=== PATIENT | male | born 1965 | race Asian ===

== ENCOUNTER 2017-10-17 | Inpatient (IN) | payer BC ==
[~2017-10-17] VITALS: Ht 175.3 cm; Wt 77.1 kg
[2017-10-17] VITALS (7 sets, daily range): BP systolic 105–132; BP diastolic 58–80
[2017-10-17] MEDS ORDERED: Albuterol/Ipratropium 3ml neb HHN ONE (00:15)
[2017-10-17] MEDS ORDERED: Solu-MEDROL 125mg Inj IVP ONE (00:15)
[2017-10-17 01:29] LABS: EOSINOPHILS % (AUTO) 6.5 % (0.0-3.0); HEMATOCRIT 46.6 % (42.0-52.0); HEMOGLOBIN 15.7 G/DL (14.2-18.0); MEAN CORPUSCULAR VOLUME 87 FL (80-99); MONOCYTES % (AUTO) 4.5 % (1.0-10.0); PLATELET COUNT 234 K/UL (150-450); RED BLOOD COUNT 5.38 M/UL (4.70-6.10); RED CELL DISTRIBUTION WIDTH 11.9 % (11.6-14.8); WHITE BLOOD COUNT 8.7 K/UL (4.8-10.8)
[2017-10-17 01:35] LABS: ANION GAP 8 mmol/L (5-15); BLOOD UREA NITROGEN 20 mg/dL (7-18); CALCIUM 8.8 MG/DL (8.5-10.1); CARBON DIOXIDE 27 MMOL/L (21-32); CHLORIDE 104 MMOL/L (98-107); CREATININE 0.6 MG/DL (0.55-1.30); POTASSIUM 3.2 MMOL/L (3.5-5.1); SODIUM 139 MMOL/L (136-145)
[2017-10-17 01:51] LABS: ALANINE AMINOTRANSFERASE 86 U/L (12-78); ALBUMIN 3.7 G/DL (3.4-5.0); ALBUMIN/GLOBULIN RATIO 0.9 (1.0-2.7); ALKALINE PHOSPHATASE 99 U/L (46-116); ASPARTATE AMINO TRANSFERASE 38 U/L (15-37); BILIRUBIN,TOTAL 0.4 MG/DL (0.2-1.0); CKMB 11.1 NG/ML (0.0-3.6); CREATINE KINASE 617 U/L (26-308)
[2017-10-17] MEDS ORDERED: Albuterol ud Inhalation ONE (02:01)
--- NOTE | 2017-10-17 02:02 | Emergency Room Report ---
History of Present Illness General Chief Complaint: Dyspnea/Respdistress Source: Patient, Family Member Present Illness HPI Is a 52-year-old male with a history of asthma and ALS. He presents with chief complaint of wheezing and shortness of breath. Had to call 911. EMS said he was hypoxic on room air. He was wheezing so they gave him breathing treatment. He thinks that cold weather is causing his symptoms. No other complaint. Recent steroid. Allergies: Coded Allergies: No Known Allergies (Unverified , 10/17/17) Patient History Past Medical History: see triage record, old chart reviewed, asthma Past Surgical History: other Pertinent Family History: none Social History: Denies: smoking Immunizations: other Reviewed Nursing Documentation: PMH: Agreed, PSxH: Agreed Nursing Documentation-PMH Hx Asthma: Yes Review of Systems Eye: Denies: eye pain, blurred vision ENT: Denies: ear pain, nose congestion, throat swelling Respiratory: Reports: cough, shortness of breath, wheezing Cardiovascular: Denies: chest pain, palpitations Gastrointestinal: Denies: abdominal pain, diarrhea, nausea, vomiting Musculoskeletal: Denies: back pain, joint pain Skin: Denies: rash Neurological: Denies: headache, numbness Endocrine: Denies: increased thirst, increased urine Hematologic/Lymphatic: Denies: easy bruising All Other Systems: negative except mentioned in HPI Physical Exam Vital Signs Date Time Temp Pulse Resp B/P (MAP) Pulse Ox O2 Delivery O2 Flow Rate FiO2 10/16/17 23:58 98.8 115 18 150/100 98 Simple Mask 10.0 98.8 10/17/17 00:25 21 vitals with tachycardia Sp02 EP Interpretation: reviewed, normal General Appearance: mild distress Head: normocephalic, atraumatic Eyes: bilateral eye PERRL, bilateral eye EOMI ENT: hearing grossly normal, normal pharynx Neck: full range of motion, supple, no meningismus Respiratory: chest non-tender, decreased breath sounds, accessory muscle use, wheezing Cardiovascular #1: regular rate, rhythm, no murmur Gastrointestinal: normal bowel sounds, non tender, no mass, no organomegaly, no bruit, non-distended Musculoskeletal: back normal Neurologic: alert, oriented x3 Psychiatric: mood/affect normal Skin: warm/dry Medical Decision Making Diagnostic Impression: Primary Impression: Asthma exacerbation Qualified Codes: J45.21 - Mild intermittent asthma with (acute) exacerbation Additional Impressions: Abnormal EKG Respiratory distress ER Course Patient with asthma exacerbation. Wheezing resolved after treatment. Starks better now. X-rays unremarkable. Labs unremarkable. Starks like he can go home. He has increased risk for deterioration patient is ALS history. patient has no cardiac history. His EKG show ST depression laterally. No comparison. Troponin negative. Will admit for further workup because of this. Lab Results Impression labs unremarkable EKG Diagnostic Results Rate: normal Rhythm: NSR ST Segments: other - ST depression laterally ASA given to the pt in ED: Yes Rhythm Strip Diag. Results Rhythm Strip Time: 02:09 EP Interpretation: yes Rate: 94 Rhythm: NSR, no PVC's, no ectopy Chest X-Ray Diagnostic Results Chest X-Ray Diagnostic Results : Chest X-Ray Ordered: Yes # of Views/Limited/Complete: 1 View Indication: Shortness of Breath EP Interpretation: Yes Interpretation: no consolidation, no effusion, no pneumothorax, no acute cardiopulmonary disease Impression: No acute disease Electronically Signed by: Leo Muñoz MD Last Vital Signs Date Time Temp Pulse Resp B/P (MAP) Pulse Ox O2 Delivery O2 Flow Rate FiO2 10/17/17 01:22 98.8 103 18 113/70 94 Room Air 98.8 10/17/17 00:38 21 10/17/17 00:00 10.0 Status: improved Disposition: ADMITTED INPATIENT Condition: LEO White M.D. Oct 17, 2017 02:01
[2017-10-17] MEDS ORDERED: BACLOFEN10 MG ORAL (02:11)
[2017-10-17] MEDS ORDERED: HYDROCODON-ACE1 EA13 ORAL (02:11)
[2017-10-17] MEDS ORDERED: SERTRALINE HCL50 MG ORAL (02:11)
[2017-10-17] MEDS ORDERED: RILUZOLE50 M1 ORAL (02:11)
[2017-10-17] MEDS ORDERED: Albuterol ud Inhalation HHN ONE (02:15)
[2017-10-17] MEDS ORDERED: Aspirin Baby 81mg ORAL ONE (02:15)
--- NOTE | 2017-10-17 09:13 | Consultation ---
History of Present Illness General Date patient seen: Oct 17, 2017 Time patient seen: 08:30 Chief Complaint: Dyspnea/Respdistress Referring physician: dr Santana Reason for Consultation: asthma exacerbation, resp distress Present Illness HPI 52-year-old male with a PMH of asthma , ALS, depression presented with c/c of shortness of breath and wheezing Woke up and had difficulties with breathing Called paramedics According to paramedics was hypoxemic and wheezing, received HHN with bronchodilators Had recent cold denies fevers, chills no cough, no congestion, no hemoptysis no smoking Hx of asthma only using Ventolin (but not as rescue inhaler), but continuously , almost q 4 hrs) denies chest pain, palpitations workup in ED revealed negative troponin, pro BNP WNL ECG abnormal with ST depression, no prior cardiac history under care for ALS at [facility], has PAC admitted for further management Allergies: Coded Allergies: No Known Allergies (Unverified , 10/17/17) Medication History Scheduled Baclofen* (Baclofen*), 20 MG ORAL THREE TIMES A DAY, (Reported) Hydrocodone Bit/Acetaminophen 10-325* (Hydrocodon-Acetaminophn 10-325*), 1 TAB ORAL Q4H, (Reported) Riluzole* (Riluzole*), 50 MG ORAL EVERY 12 HOURS, (Reported) Sertraline Hcl* (Zoloft*), 50 MG ORAL BID, (Reported) Patient History History Provided By: Patient Healthcare decision maker Resuscitation status Full Code Advanced Directive on File No Review of Systems Constitutional: Reports: weakness Eye: Reports: no symptoms ENT: Reports: no symptoms Respiratory: Reports: see HPI Cardiovascular: Reports: no symptoms Gastrointestinal: Reports: no symptoms Musculoskeletal: Reports: muscle stiffness, other - not ambualtory Psychiatric: Reports: depressed feelings Neurological: Reports: other - ALS Endocrine: Reports: no symptoms Physical Exam General Appearance: WD/WN, no apparent distress - bedridden, awake, alert, responsive Lines, tubes and drains: central line - Cporta-cath intact HEENT: normocephalic, atraumatic, anicteric, mucous membranes moist, PERRL Respiratory/Chest: decreased breath sounds Cardiovascular/Chest: normal rate, regular rhythm - SR on tele, no JVD Abdomen: normal bowel sounds, non tender, soft Extremities: non-tender, no calf tenderness, normal capillary refill, other - wrist splints Skin Exam: warm/dry Neurologic: abnormal gait - bedridden , alert Musculoskeletal: atrophy - BLE Last 24 Hour Vital Signs Date Time Temp Pulse Resp B/P (MAP) Pulse Ox O2 Delivery O2 Flow Rate FiO2 10/17/17 04:00 98.1 90 21 124/79 93 98.1 10/17/17 03:36 98.8 101 18 105/58 94 Room Air 10.0 21 98.8 10/17/17 03:25 98.8 101 18 105/58 94 Room Air 10.0 21 98.8 10/17/17 02:18 96 18 100 Room Air 21 10/17/17 02:10 94 16 100 Room Air 21 10/17/17 01:22 98.8 103 18 113/70 94 Room Air 98.8 10/17/17 00:38 106 18 100 Room Air 21 10/17/17 00:25 105 19 99 Room Air 21 10/17/17 00:25 105 18 Room Air 21 10/17/17 00:00 115 18 Simple Mask 10.0 10/16/17 23:58 98.8 115 18 150/100 98 Simple Mask 10.0 98.8 Intake and Output 10/16/17 10/17/17 19:00 07:00 Intake Total 1150 ml Output Total 400 ml Balance 750 ml Intake Oral 150 ml IV Total 1000 ml Output Urine Total 400 ml Laboratory Tests Test 10/17/17 00:38 White Blood Count 8.7 K/UL (4.8-10.8) Red Blood Count 5.38 M/UL (4.70-6.10) Hemoglobin 15.7 G/DL (14.2-18.0) Hematocrit 46.6 % (42.0-52.0) Mean Corpuscular Volume 87 FL (80-99) Mean Corpuscular Hemoglobin 29.2 PG (27.0-31.0) Mean Corpuscular Hemoglobin Concent 33.8 G/DL (32.0-36.0) Red Cell Distribution Width 11.9 % (11.6-14.8) Platelet Count 234 K/UL (150-450) Mean Platelet Volume 6.8 FL (6.5-10.1) Neutrophils (%) (Auto) 55.0 % (45.0-75.0) Lymphocytes (%) (Auto) 33.0 % (20.0-45.0) Monocytes (%) (Auto) 4.5 % (1.0-10.0) Eosinophils (%) (Auto) 6.5 % (0.0-3.0) H Basophils (%) (Auto) 1.0 % (0.0-2.0) Prothrombin Time 10.0 SEC (9.30-11.50) Prothromb Time International Ratio 1.0 (0.9-1.1) Activated Partial Thromboplast Time 27 SEC (23-33) Sodium Level 139 MMOL/L (136-145) Potassium Level 3.2 MMOL/L (3.5-5.1) L Chloride Level 104 MMOL/L (98-107) Carbon Dioxide Level 27 MMOL/L (21-32) Anion Gap 8 mmol/L (5-15) Blood Urea Nitrogen 20 mg/dL (7-18) H Creatinine 0.6 MG/DL (0.55-1.30) Estimat Glomerular Filtration Rate > 60 mL/min (>60) Glucose Level 142 MG/DL (74-106) H Calcium Level 8.8 MG/DL (8.5-10.1) Total Bilirubin 0.4 MG/DL (0.2-1.0) Aspartate Amino Transf (AST/SGOT) 38 U/L (15-37) H Alanine Aminotransferase (ALT/SGPT) 86 U/L (12-78) H Alkaline Phosphatase 99 U/L (46-116) Total Creatine Kinase 617 U/L (26-308) H Creatine Kinase MB 11.1 NG/ML (0.0-3.6) H Creatine Kinase MB Relative Index 1.7 Troponin I 0.000 ng/mL (0.000-0.056) Pro-B-Type Natriuretic Peptide < 5 pg/mL (0-125) Total Protein 7.7 G/DL (6.4-8.2) Albumin 3.7 G/DL (3.4-5.0) Globulin 4.0 g/dL Albumin/Globulin Ratio 0.9 (1.0-2.7) L Microbiology Date/Time Source Procedure Growth Status 10/17/17 00:43 Nasal Nares Influenza Types A,B Antigen (BEATRIZ) - Final Complete Height (Feet): 5 Height (Inches): 9.00 Weight (Pounds): 170 Assessment/Plan Assessment/Plan ASSESSMENT acute hypoxemic respiratory failure-resolved ( likely due to bronchospasm ) asthma exacerbation abnormal ECG with ST depression ALS depression PLAN OF CARE tele troponin negative repeat troponin and ECG in am ECHO cardio eval Venous Duplex BLE, D dimer O2 HHN prn IV steroids and taper fast fup with CXR in am neuro eval PT/OT DVT, GI prophayxlis pain management home meds resumed, including a/depressant supportive care PFT as outpatient, outpt fup with community health program coordinator O2 sat on RA 94-95% case discussed and evaluated by supervising physician Roel (Charly),Tasha GAGNON Oct 17, 2017 09:13
[2017-10-17] MEDS ORDERED: Mylanta II UD 30ml ORAL PRN (09:15)
[2017-10-17] MEDS ORDERED: Albuterol/Ipratropium 3ml neb HHN PRN (09:15)
--- NOTE | 2017-10-17 09:22 | Diagnostic Imaging Report ---
Indication: Shortness of breath Technique: One view of the chest Comparison: none Findings: The lungs and pleural spaces are clear. There is a right chest port catheter. The heart size is normal. The aorta is elongated tortuous and calcified. The upper mediastinum is unremarkable Impression: No acute process
--- NOTE | 2017-10-17 11:12 | Neurology Progress Note ---
Objective Physical Exam Last Vital Signs Date Time Temp Pulse Resp B/P (MAP) Pulse Ox O2 Delivery O2 Flow Rate FiO2 10/17/17 04:00 98.1 90 21 124/79 93 98.1 10/17/17 03:36 Room Air 10.0 21 Laboratory Tests Test 10/17/17 00:38 White Blood Count 8.7 K/UL (4.8-10.8) Red Blood Count 5.38 M/UL (4.70-6.10) Hemoglobin 15.7 G/DL (14.2-18.0) Hematocrit 46.6 % (42.0-52.0) Mean Corpuscular Volume 87 FL (80-99) Mean Corpuscular Hemoglobin 29.2 PG (27.0-31.0) Mean Corpuscular Hemoglobin Concent 33.8 G/DL (32.0-36.0) Red Cell Distribution Width 11.9 % (11.6-14.8) Platelet Count 234 K/UL (150-450) Mean Platelet Volume 6.8 FL (6.5-10.1) Neutrophils (%) (Auto) 55.0 % (45.0-75.0) Lymphocytes (%) (Auto) 33.0 % (20.0-45.0) Monocytes (%) (Auto) 4.5 % (1.0-10.0) Eosinophils (%) (Auto) 6.5 % (0.0-3.0) H Basophils (%) (Auto) 1.0 % (0.0-2.0) Prothrombin Time 10.0 SEC (9.30-11.50) Prothromb Time International Ratio 1.0 (0.9-1.1) Activated Partial Thromboplast Time 27 SEC (23-33) D-Dimer Pending Sodium Level 139 MMOL/L (136-145) Potassium Level 3.2 MMOL/L (3.5-5.1) L Chloride Level 104 MMOL/L (98-107) Carbon Dioxide Level 27 MMOL/L (21-32) Anion Gap 8 mmol/L (5-15) Blood Urea Nitrogen 20 mg/dL (7-18) H Creatinine 0.6 MG/DL (0.55-1.30) Estimat Glomerular Filtration Rate > 60 mL/min (>60) Glucose Level 142 MG/DL (74-106) H Calcium Level 8.8 MG/DL (8.5-10.1) Total Bilirubin 0.4 MG/DL (0.2-1.0) Aspartate Amino Transf (AST/SGOT) 38 U/L (15-37) H Alanine Aminotransferase (ALT/SGPT) 86 U/L (12-78) H Alkaline Phosphatase 99 U/L (46-116) Total Creatine Kinase 617 U/L (26-308) H Creatine Kinase MB 11.1 NG/ML (0.0-3.6) H Creatine Kinase MB Relative Index 1.7 Troponin I 0.000 ng/mL (0.000-0.056) Pro-B-Type Natriuretic Peptide < 5 pg/mL (0-125) Total Protein 7.7 G/DL (6.4-8.2) Albumin 3.7 G/DL (3.4-5.0) Globulin 4.0 g/dL Albumin/Globulin Ratio 0.9 (1.0-2.7) L Impression/Recommendations Problems: (1) ALS (amyotrophic lateral sclerosis) (2) Respiratory distress (3) Asthma exacerbation Status: stable Recommendations #[id number] MATTHEW HINTON Oct 17, 2017 11:12
[2017-10-17] MEDS: Solu-MEDROL 40mg Inj IVP SCH ×3 (13:27→23:53)
--- NOTE | 2017-10-17 14:30 | Cardiology Report ---
APPROVED REPORT EKG Measurement Heart [id number] Sinus tachycardia Septal infarct, age undetermined Abnormal ECG
--- NOTE | 2017-10-17 16:29 | Cardiology Report ---
APPROVED REPORT EXAM: Two-dimensional and M-mode echocardiogram with Doppler and color Doppler. INDICATION S.O.B M-Mode DIMENSIONS IVSd1.2 (0.7-1.1cm)Left Atrium (MM)2.2 (1.6-4.0cm) LVDd3.7 (3.5-5.6cm)Aortic Root3.7 (2.0-3.7cm) PWd1.4 (0.7-1.1cm)Aortic Cusp Exc.2.2 (1.5-2.0cm) IVSs1.6 cm LVDs2.4 (2.5-4.0cm) PWs1.7 cm Normal left ventricular chamber size, systolic function and wall motion. Left ventricular ejection fraction estimated to be 60-65 %. Mild left ventricular hypertrophy by 2-D. No evidence of pericardial effusion. All other cardiac chamber sizes are within normal limits. Focal aortic valve sclerosis with adequate cusp excursion. Mildly Thickened mitral valve leaflets with normal excursion. Mildly Mitral annulus and aortic root calcification. Normal pulmonic valve structure. Normal tricuspid valve structure. IVC at normal size with physiologic collapse. A color flow and spectral Doppler study was performed and revealed: No aortic regurgitation. Trace mitral regurgitation. Mitral diastolic velocities suggest reduced left ventricular relaxation c/w mild LV diastolic dysfunction (Grade I ). Trace tricuspid regurgitation. Tricuspid systolic velocities suggests peak right ventricular systolic pressure of 27 mmHg No Pulmonic regurgitation present.
--- NOTE | 2017-10-17 17:14 | Cardiac Electrophysiology PN ---
Subjective Subjective [id number] Cardiology consult dictated. Dynamic inferolateral ischemia. Nuclear stress test in am. Objective Last 24 Hour Vital Signs Date Time Temp Pulse Resp B/P (MAP) Pulse Ox O2 Delivery O2 Flow Rate FiO2 10/17/17 12:00 97.5 89 19 117/68 94 97.5 10/17/17 08:00 97.5 89 20 126/77 94 97.5 10/17/17 04:00 98.1 90 21 124/79 93 98.1 10/17/17 03:36 98.8 101 18 105/58 94 Room Air 10.0 21 98.8 10/17/17 03:25 98.8 101 18 105/58 94 Room Air 10.0 21 98.8 10/17/17 02:18 96 18 100 Room Air 21 10/17/17 02:10 94 16 100 Room Air 21 10/17/17 01:22 98.8 103 18 113/70 94 Room Air 98.8 10/17/17 00:38 106 18 100 Room Air 21 10/17/17 00:25 105 19 99 Room Air 21 10/17/17 00:25 105 18 Room Air 21 10/17/17 00:00 115 18 Simple Mask 10.0 10/16/17 23:58 98.8 115 18 150/100 98 Simple Mask 10.0 98.8 Intake and Output 10/16/17 10/17/17 19:00 07:00 Intake Total 1150 ml Output Total 400 ml Balance 750 ml Intake Oral 150 ml IV Total 1000 ml Output Urine Total 400 ml Laboratory Tests Test 10/17/17 00:38 White Blood Count 8.7 K/UL (4.8-10.8) Red Blood Count 5.38 M/UL (4.70-6.10) Hemoglobin 15.7 G/DL (14.2-18.0) Hematocrit 46.6 % (42.0-52.0) Mean Corpuscular Volume 87 FL (80-99) Mean Corpuscular Hemoglobin 29.2 PG (27.0-31.0) Mean Corpuscular Hemoglobin Concent 33.8 G/DL (32.0-36.0) Red Cell Distribution Width 11.9 % (11.6-14.8) Platelet Count 234 K/UL (150-450) Mean Platelet Volume 6.8 FL (6.5-10.1) Neutrophils (%) (Auto) 55.0 % (45.0-75.0) Lymphocytes (%) (Auto) 33.0 % (20.0-45.0) Monocytes (%) (Auto) 4.5 % (1.0-10.0) Eosinophils (%) (Auto) 6.5 % (0.0-3.0) H Basophils (%) (Auto) 1.0 % (0.0-2.0) Prothrombin Time 10.0 SEC (9.30-11.50) Prothromb Time International Ratio 1.0 (0.9-1.1) Activated Partial Thromboplast Time 27 SEC (23-33) D-Dimer 0.40 mg/L FEU (0.00-0.49) Sodium Level 139 MMOL/L (136-145) Potassium Level 3.2 MMOL/L (3.5-5.1) L Chloride Level 104 MMOL/L (98-107) Carbon Dioxide Level 27 MMOL/L (21-32) Anion Gap 8 mmol/L (5-15) Blood Urea Nitrogen 20 mg/dL (7-18) H Creatinine 0.6 MG/DL (0.55-1.30) Estimat Glomerular Filtration Rate > 60 mL/min (>60) Glucose Level 142 MG/DL (74-106) H Calcium Level 8.8 MG/DL (8.5-10.1) Total Bilirubin 0.4 MG/DL (0.2-1.0) Aspartate Amino Transf (AST/SGOT) 38 U/L (15-37) H Alanine Aminotransferase (ALT/SGPT) 86 U/L (12-78) H Alkaline Phosphatase 99 U/L (46-116) Total Creatine Kinase 617 U/L (26-308) H Creatine Kinase MB 11.1 NG/ML (0.0-3.6) H Creatine Kinase MB Relative Index 1.7 Troponin I 0.000 ng/mL (0.000-0.056) Pro-B-Type Natriuretic Peptide < 5 pg/mL (0-125) Total Protein 7.7 G/DL (6.4-8.2) Albumin 3.7 G/DL (3.4-5.0) Globulin 4.0 g/dL Albumin/Globulin Ratio 0.9 (1.0-2.7) L Microbiology Date/Time Source Procedure Growth Status 10/17/17 00:43 Nasal Nares Influenza Types A,B Antigen (BEATRIZ) - Final Complete BHANU CASTELLON Oct 17, 2017 17:14
[2017-10-17] MEDS: Sertraline 50mg tab ORAL SCH (18:37)
--- NOTE | 2017-10-17 19:31 | Consultation ---
DATE OF CONSULTATION: 10/17/2017 NEUROLOGICAL CONSULTATION CONSULTING PHYSICIAN: Syd Quinones M.D. REQESTING PHYSICIAN: Luisa Lindsay M.D. HISTORY OF PRESENT ILLNESS: The patient is a 52-year-old gentleman seen in neurological consultation after he developed respiratory insufficiency in the setting of amyotrophic lateral sclerosis. The patient known to have ALS symptomatology started about 2.5 to 3 years ago initially with weakness in his left fingers spread to both upper and lower extremities becoming bedridden. There was no evidence of dysphagia, dysphonia, but recently approximately three months ago he developed weakness in his neck. In July of last year, he had a flu-like symptoms and had developed transient shortness of breath, respiratory insufficiency, this exacerbated again two weeks ago after having a flu-like symptoms. He was actually getting better but night prior to admission he developed increasing wheezing and shortness of breath which initially attributed to his background asthma but symptoms did not improve and paramedics were called to the scene, they reported the patient being hypoxemic, wheezing, he was given handheld nebulizer with bronchodilator. EKG on admission was abnormal with ST depression. Laboratory work was obtained, normal CBC study, coagulation panel. Chemistry panel was abnormal. Low potassium 3.2. Glucose 142 elevated AST 38, ALT 86. Elevated CPK at 617 with MB 11.1. Normal troponin. Imaging studies included chest x-ray, which revealed no acute process. The patient was given aspirin. His treatment included IV normal saline. He was given Proventil, baclofen 20 mg t.i.d., albuterol, , subcutaneous heparin, p.r.n. [place], Solu-Medrol, Zofran, continue Zoloft 50 mg b.i.d. Since admission to present, there were some improvement, no further wheezing. PAST MEDICAL HISTORY: Bronchial asthma, ALS. Denies any other major medical problems. ALLERGIES: None reported. SOCIAL HISTORY: Lives at home. He has a caregiver around the clock. The patient was initially diagnosed with ALS at [facility]. He is currently under the care of [facility] at [facility] being treated with medication from clinical trial. He appears to be stabilized from ALS symptomatology over the few months. REVIEW OF SYMPTOMS: Generalized weakness. Denies headache. Denies chest pain. Weakness in both upper and lower extremities. Neck weakness. Normal swallowing. Normal speech. No vision abnormalities. No diplopia. No urine or bowel incontinence. PHYSICAL EXAMINATION: GENERAL: A well-developed and well-nourished man, not in acute distress, lying comfortably in bed with his and a caregiver at bedside. VITAL SIGNS: Stable. heart rate of 90, blood pressure 124/79. HEENT: Head is normocephalic. No evidence of trauma. Eyes, ears, and throat are clear. NECK: Supple. No meningeal signs. MUSCULOSKELETAL: Unremarkable. There are no deformities. Peripheral pulses 1+ symmetric. MENTAL STATUS: The patient is fully alert and oriented x3 with no evidence of aphasia or apraxia. Cognitive function normal. CRANIAL NERVE II: Pupils both responding to light and accommodation. Extraocular movement intact. No nystagmus. Fundi are benign. CRANIAL NERVE V: Normal corneal responses. CRANIAL NERVE VII: No facial asymmetry. CRANIAL NERVE VIII: Normal hearing. CRANIAL NERVE IX THROUGH XII: Within normal limits. MOTOR EXAMINATION: Revealed weakness in flexion and extension of the neck 4/5. There is 1/5 weakness in the right hand flexors, 2/5 left hand flexors, wrist brace in both hands. A 2/5 weakness in the biceps and triceps. Able to lift both lower extremities, 4/5 hamstrings, 2/5 foot flexors, 0/5 extensor with bilateral foot drop and somewhat extended both feet. Increased muscle tone both lower extremities. Deep tendon reflexes 3+ bilaterally symmetric. Plantar responses, positive Babinski in the right, mute on the left. SENSORY EXAMINATION: Normal to pinprick and light touch. IMPRESSION: 1. Amyotrophic lateral sclerosis, slow progression. 2. Respiratory insufficiency probably related to underlying amyotrophic lateral sclerosis. 3. Status post upper respiratory infection. 4. Bronchial asthma. RECOMMENDATION: The patient will need a pulmonary function test, this should be monitored on outpatient basis by his outpatient see supervisor. The patient to continue with the treatment set at [facility] Clinic, PT/OT, range of motion exercise both upper and lower extremities. Necessity for oxygen support as needed deferred to Pulmonology. Thank you for allowing me to see this interesting patient in neurological consultation. Syd Quinones M.D. DR: Tiny JOB#: [id number] CC:
[2017-10-17] MEDS: HYDROcodone/Acetamin 10/325 tab ORAL PRN (19:57)
[2017-10-17] MEDS ORDERED: RILUTEK 50 MG ORAL SCH (20:00)
[2017-10-17] MEDS: Docusate 100mg cap ORAL SCH (20:22)
[2017-10-17] MEDS: Heparin 5000 units/ml inj SUBQ SCH (20:22)
[2017-10-18] VITALS: BP 116/74
--- NOTE | 2017-10-18 02:01 | History and Physical Report ---
DATE OF ADMISSION: 10/17/2017 HISTORY OF PRESENT ILLNESS: The patient is admitted to telemetry floor for asthma exacerbation and abnormal EKG. The patient has been diagnosed with ALS 2-1/2 years ago and followed up for few days. The patient denied chest pain, but did have shortness of breath. EKG showed ST depression. The patient was complaining of shortness of breath, wheezing, and nonproductive cough yesterday and is being admitted for asthma exacerbation as well as abnormal EKG. The patient denies chest pain. Denies nausea, vomiting, or diarrhea. The patient is mostly wheelchair bound and is able to transfer from wheelchair to bed with assistance and with the help of a walker. Denies orthopnea. Denies nausea, vomiting, or diarrhea. Denies rectal bleeding. PAST MEDICAL HISTORY: Significant for depression, ALS, and history of childhood asthma. PAST SURGICAL HISTORY: None. SOCIAL HISTORY: History of smoking. No history of drug or alcohol abuse. FAMILY HISTORY: Noncontributory. REVIEW OF SYSTEMS: HEENT: Denies headaches. RESPIRATORY: Reports shortness of breath and wheezing and nonproductive cough x1 day. CARDIOVASCULAR: Denies chest pain. No orthopnea. GASTROINTESTINAL: Denies nausea, vomiting, or diarrhea. EXTREMITIES: Denies any pain. TRAY DELIVERY AIDE: No change in vision or speech pattern. He is mostly wheelchair bound. PHYSICAL EXAMINATION: VITAL SIGNS: Temperature 98.8, pulse is 101, and blood pressure 105/58. HEENT: PERRLA. NECK: Supple. No lymphadenopathy. CHEST: Bibasilar wheezing. CARDIOVASCULAR: Regular rate and rhythm. GASTROINTESTINAL: Soft, nontender, and nondistended. No organomegaly. EXTREMITIES: No edema. NEUROLOGIC: He does have generalized weakness. Reflexes equal on both sides. Oriented x3. LABORATORY DATA: WBC of 8.7 and hemoglobin of 15.7. Sodium 139, potassium 3.2, BUN of 20, and creatinine 0.6. Glucose 142. Troponins are negative. EKG shows ST depression. ASSESSMENT AND PLAN: ST-depression as well as asthma exacerbation as well as hypokalemia. I have asked basically Dr. Burkett, Dr. Pittman, Dr. See, and Dr. Quinones to see the patient for the above-mentioned diagnoses and treatment. Ali Aneta Lindsay DR: JOSELITO JOB#: [id number] CC:
[2017-10-18 04:00] VITALS: BP 114/84
--- NOTE | 2017-10-18 05:46 | Consultation ---
DATE OF CONSULTATION: 10/17/2017 NOTE: POOR AUDIO CARDIOLOGY CONSULTATION CONSULTING PHYSICIAN: Derek Pittman M.D. REFERRING PHYSICIAN: Luisa Lindsay M.D. REASON FOR CONSULTATION: Shortness of breath and abnormal EKG suggestive of inferolateral ischemia. HISTORY OF PRESENT ILLNESS: The patient is a very pleasant 52-year-old gentleman with history of amyotrophic lateral sclerosis and asthma and the patient presented to the emergency room complaining of shortness of breath and wheezing. He woke up and he had difficulty breathing and called paramedics. hypoxemic and wheezing and received handheld nebulizer with bronchodilators. The patient , but denies any fever or chills. No nausea, vomiting, or diaphoresis. The patient denies any prior cardiac history. His EKG in the emergency room showed inferolateral ST-depression suggestive of ischemia even though his troponin was negative. The patient underwent an echocardiogram that showed normal left ventricular systolic function. Repeat EKG today is completely normalized. PAST MEDICAL HISTORY: 1. Amyotrophic lateral sclerosis. 2. Asthma. MEDICATIONS: Baclofen, riluzole, and Zoloft. FAMILY HISTORY: Noncontributory. SOCIAL HISTORY: Lives at home. Does not smoke or drink alcohol. REVIEW OF SYSTEMS: Review of systems was performed and was negative other than what was mentioned in the history of present illness. PHYSICAL EXAMINATION: VITAL SIGNS: Blood pressure is 117/68, pulse is 89, respirations 18, and temperature 97.5. HEAD AND NECK: Showed no JVD. CHEST: He has a port in the right chest. LUNGS: Clear. CARDIOVASCULAR: Shows regular S1 and S2 with no gallop or murmur. ABDOMEN: Soft and nontender. EXTREMITIES: No pitting edema. LABORATORY AND DIAGNOSTIC DATA: His EKG and echocardiogram as mentioned above. Labs, white count 8.7, hemoglobin 15.7, hematocrit 46.6, and platelet count 234,000. Sodium 139, potassium 3.2, BUN of 20, creatinine 0.6, and glucose of 140. Troponin is negative. His CK is 617 and MB is 11.1. ASSESSMENT AND PLAN: 1. Dynamic EKG changes, inferolateral ischemia. His echocardiogram showed normal left ventricular systolic function. We proceeded with nuclear stress test in view of changing EKG with inferolateral ischemia. I did not start the patient on anticoagulation at this time chest pain. 2. Asthma, on albuterol and Solu-Medrol. 3. Acute depression, on Zoloft. 4. Amyotrophic lateral sclerosis. Thank you very much, Dr. Lindsay, for allowing me to participate in the care of this patient. Please do not hesitate to contact me for any questions regarding my evaluation. Derek Pittman M.D. DR: TYRONE JOB#: [id number] CC:
[2017-10-18] MEDS: Solu-MEDROL 40mg Inj IVP SCH ×3 (06:12→18:07)
[2017-10-18 08:00] VITALS: BP 125/81
[2017-10-18] MEDS ORDERED: Lexiscan 0.4mg/5ml syringe IV PRN (08:00)
[2017-10-18] MEDS: Sertraline 50mg tab ORAL SCH ×2 (08:01→18:07)
[2017-10-18] MEDS: Docusate 100mg cap ORAL SCH ×2 (08:01→18:08)
[2017-10-18] MEDS: Heparin 5000 units/ml inj SUBQ SCH ×2 (08:05→21:16)
[2017-10-18 08:33] LABS: BASOPHILS % (AUTO) 0.3 % (0.0-2.0); HEMATOCRIT 47.8 % (42.0-52.0); HEMOGLOBIN 16.1 G/DL (14.2-18.0); LYMPHOCYTES % (AUTO) 13.1 % (20.0-45.0); MEAN CORPUSCULAR VOLUME 88 FL (80-99); MONOCYTES % (AUTO) 2.9 % (1.0-10.0); NEUTROPHILS % (AUTO) 83.7 % (45.0-75.0); PLATELET COUNT 291 K/UL (150-450); RED BLOOD COUNT 5.46 M/UL (4.70-6.10); RED CELL DISTRIBUTION WIDTH 11.9 % (11.6-14.8); WHITE BLOOD COUNT 10.3 K/UL (4.8-10.8)
--- NOTE | 2017-10-18 08:46 | Diagnostic Imaging Report ---
Indication: Shortness of breath Technique: One view of the chest Comparison: 10/17/2017 Findings: Less optimal inspiration currently. There is some crowding of the bronchovascular markings, particularly in the right infrahilar region. No definite acute filtrates, effusions, or congestion. The heart size is normal. The aorta is dilated and slightly tortuous. Impression: No acute process
[2017-10-18 09:29] LABS: ANION GAP 9 mmol/L (5-15); BLOOD UREA NITROGEN 16 mg/dL (7-18); CALCIUM 9.3 MG/DL (8.5-10.1); CARBON DIOXIDE 25 MMOL/L (21-32); CHLORIDE 104 MMOL/L (98-107); CHOLESTEROL 284 MG/DL (< 200); CREATININE 0.5 MG/DL (0.55-1.30); HDL CHOLESTEROL 57 MG/DL (40-60); SODIUM 138 MMOL/L (136-145); TRIGLYCERIDES 78 MG/DL (30-150)
[2017-10-18 12:00] VITALS: BP 118/66
--- NOTE | 2017-10-18 12:44 | Pulmonology Progress Note ---
Assessment/Plan Problems: (1) Asthma exacerbation (2) Respiratory distress (3) ALS (amyotrophic lateral sclerosis) Assessment/Plan respiratory treatment chest pt check sputum continue abx titrate fio2 to sat of 92% cxr soon. Subjective ROS Limited/Unobtainable: No Constitutional: Reports: no symptoms HEENT: Repors: no symptoms Respiratory: Reports: no symptoms Allergies: Coded Allergies: No Known Allergies (Unverified , 10/17/17) Objective Last 24 Hour Vital Signs Date Time Temp Pulse Resp B/P (MAP) Pulse Ox O2 Delivery O2 Flow Rate FiO2 10/18/17 12:00 97.9 82 18 118/66 94 Room Air 97.9 10/18/17 08:00 97.9 79 18 125/81 94 Room Air 97.9 10/18/17 08:00 80 10/18/17 07:11 78 18 Room Air 21 10/18/17 04:00 68 10/18/17 04:00 97.3 71 20 114/84 94 Room Air 97.3 10/18/17 00:15 78 10/18/17 00:00 98.2 83 20 116/74 94 Room Air 98.2 10/17/17 20:00 97.9 89 22 132/80 93 97.9 10/17/17 20:00 94 10/17/17 18:00 93 10/17/17 16:00 97.0 93 20 122/75 95 97.0 Intake and Output 10/17/17 10/18/17 19:00 07:00 Intake Total 236 ml 472 ml Output Total 400 ml Balance 236 ml 72 ml Intake Oral 236 ml 472 ml Output Urine Total 400 ml # Voids 1 2 General Appearance: WD/WN HEENT: normocephalic, atraumatic Respiratory/Chest: chest wall non-tender, lungs clear Cardiovascular: normal peripheral pulses, normal rate Abdomen: normal bowel sounds, soft, non tender Extremities: no cyanosis Skin: no rash 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 Lymphatic: no neck adenopathy Microbiology Date/Time Source Procedure Growth Status 10/17/17 00:43 Nasal Nares Influenza Types A,B Antigen (BEATRIZ) - Final Complete Laboratory Tests 10/18/17 07:05: White Blood Count 10.3, Red Blood Count 5.46, Hemoglobin 16.1, Hematocrit 47.8, Mean Corpuscular Volume 88, Mean Corpuscular Hemoglobin 29.5, Mean Corpuscular Hemoglobin Concent 33.7, Red Cell Distribution Width 11.9, Platelet Count 291, Mean Platelet Volume 6.5, Neutrophils (%) (Auto) 83.7H, Lymphocytes (%) (Auto) 13.1L, Monocytes (%) (Auto) 2.9, Eosinophils (%) (Auto) 0.0, Basophils (%) (Auto ) 0.3, Sodium Level 138, Potassium Level 4.0, Chloride Level 104, Carbon Dioxide Level 25, Anion Gap 9, Blood Urea Nitrogen 16, Creatinine 0.5L, Estimat Glomerular Filtration Rate > 60, Glucose Level 138H, Calcium Level 9.3, Magnesium Level 2.1, Troponin I 0.000, Triglycerides Level 78, Cholesterol Level 284H, LDL Cholesterol 208H, HDL Cholesterol 57, Cholesterol/HDL Ratio 5.0H , Thyroid Stimulating Hormone (TSH) 0.569 Current Medications Medications (Trade) Dose Ordered Sig/Zofia Route PRN Reason Start Time Stop Time Status Last Admin Dose Admin Acetaminophen (Tylenol) 650 mg Q4H PRN ORAL Mild Pain (Pain Scale 1-3) 10/17/17 09:15 11/16/17 09:14 Acetaminophen/ Hydrocodone Bitart ([place] 10/325) 1 tab Q4H PRN ORAL MOD-SEVERE PAIN 10/17/17 09:15 10/24/17 09:14 10/17/17 19:57 Al Hydroxide/Mg Hydroxide (Mylanta II) 30 ml Q6H PRN ORAL dyspepsia 10/17/17 09:15 11/16/17 09:14 Albuterol/ Ipratropium (Albuterol/ Ipratropium) 3 ml Q4HR PRN HHN Shortness of Breath 10/17/17 09:15 10/22/17 09:14 Baclofen (Lioresal) 20 mg THREE TIMES A DAY ORAL 10/17/17 13:00 11/16/17 12:59 10/18/17 12:23 Dextrose (Dextrose 50%) STAT PRN IV Hypoglycemia 10/17/17 09:15 11/16/17 09:14 Docusate Sodium (Colace) 100 mg TWICE A DAY ORAL 10/17/17 21:00 11/16/17 20:59 10/18/17 08:01 Famotidine (Pepcid) 40 mg DAILY ORAL 10/18/17 10:00 11/17/17 09:59 10/18/17 10:46 Heparin Sodium (Porcine) (Heparin 5000 units/ml) 5,000 units EVERY 12 HOURS SUBQ 10/17/17 21:00 11/16/17 20:59 10/18/17 08:05 Methylprednisolone Sodium Succinate (Solu-MEDROL) 40 mg EVERY 6 HOURS IVP 10/17/17 12:00 11/16/17 11:59 10/18/17 10:46 Ondansetron HCl (Zofran) 4 mg Q6H PRN IVP Nausea & Vomiting 10/17/17 09:15 11/16/17 09:14 Patient Own Medication (Patient's Own Med) 1 ea BID ORAL 10/18/17 09:00 11/17/17 08:59 UNV Regadenoson (Lexiscan) 0.4 mg ONCE PRN IV Stress Test 10/18/17 08:00 10/18/17 18:00 Sertraline HCl (Zoloft) 50 mg BID ORAL 10/17/17 18:00 11/16/17 17:59 10/18/17 08:01 AVI LOPEZ Oct 18, 2017 12:44
[2017-10-18] MEDS ORDERED: DOBUTamine 250mg/250ml Premix IV ONE (15:17)
[2017-10-18 15:39] LABS: APPEARANCE,URINE CLEAR; BILIRUBIN, URINE NEGATIVE (NEGATIVE); GLUCOSE, URINE (UA) NEGATIVE (NEGATIVE); KETONES,URINE NEGATIVE (NEGATIVE); LEUKOCYTE ESTERASE ,URINE NEGATIVE (NEGATIVE); NITRITE,URINE NEGATIVE (NEGATIVE); PH,URINE 6 (4.5-8.0); PROTEIN,URINE NEGATIVE (NEGATIVE); UROBILINOGEN,URINE 1 MG/DL (0.0-1.0)
[2017-10-18 15:40] LABS: COLOR,URINE YELLOW
[2017-10-18 16:00] VITALS: BP 139/89
--- NOTE | 2017-10-18 16:06 | Cardiac Electrophysiology PN ---
Assessment/Plan Assessment/Plan 1. Dynamic EKG changes, inferolateral ischemia. His echocardiogram showed normal left ventricular systolic function. Dobutamine echo stress test today showed no ischemia. 2. Asthma, on albuterol and Solu-Medrol. 3. Acute depression, on Zoloft. 4. Amyotrophic lateral sclerosis. DW RN and at bedside. Subjective Subjective No chest pain or SOB. Had Dobutamine echo today. at bedside. Objective Last 24 Hour Vital Signs Date Time Temp Pulse Resp B/P (MAP) Pulse Ox O2 Delivery O2 Flow Rate FiO2 10/18/17 12:00 97.9 82 18 118/66 94 Room Air 97.9 10/18/17 08:00 97.9 79 18 125/81 94 Room Air 97.9 10/18/17 08:00 80 10/18/17 07:11 78 18 Room Air 21 10/18/17 04:00 68 10/18/17 04:00 97.3 71 20 114/84 94 Room Air 97.3 10/18/17 00:15 78 10/18/17 00:00 98.2 83 20 116/74 94 Room Air 98.2 10/17/17 20:00 97.9 89 22 132/80 93 97.9 10/17/17 20:00 94 10/17/17 18:00 93 Intake and Output 10/17/17 10/18/17 19:00 07:00 Intake Total 236 ml 472 ml Output Total 400 ml Balance 236 ml 72 ml Intake Oral 236 ml 472 ml Output Urine Total 400 ml # Voids 1 2 Laboratory Tests Test 10/18/17 07:05 10/18/17 14:57 White Blood Count 10.3 K/UL (4.8-10.8) Red Blood Count 5.46 M/UL (4.70-6.10) Hemoglobin 16.1 G/DL (14.2-18.0) Hematocrit 47.8 % (42.0-52.0) Mean Corpuscular Volume 88 FL (80-99) Mean Corpuscular Hemoglobin 29.5 PG (27.0-31.0) Mean Corpuscular Hemoglobin Concent 33.7 G/DL (32.0-36.0) Red Cell Distribution Width 11.9 % (11.6-14.8) Platelet Count 291 K/UL (150-450) Mean Platelet Volume 6.5 FL (6.5-10.1) Neutrophils (%) (Auto) 83.7 % (45.0-75.0) H Lymphocytes (%) (Auto) 13.1 % (20.0-45.0) L Monocytes (%) (Auto) 2.9 % (1.0-10.0) Eosinophils (%) (Auto) 0.0 % (0.0-3.0) Basophils (%) (Auto) 0.3 % (0.0-2.0) Sodium Level 138 MMOL/L (136-145) Potassium Level 4.0 MMOL/L (3.5-5.1) Chloride Level 104 MMOL/L (98-107) Carbon Dioxide Level 25 MMOL/L (21-32) Anion Gap 9 mmol/L (5-15) Blood Urea Nitrogen 16 mg/dL (7-18) Creatinine 0.5 MG/DL (0.55-1.30) L Estimat Glomerular Filtration Rate > 60 mL/min (>60) Glucose Level 138 MG/DL (74-106) H Calcium Level 9.3 MG/DL (8.5-10.1) Magnesium Level 2.1 MG/DL (1.8-2.4) Troponin I 0.000 ng/mL (0.000-0.056) Triglycerides Level 78 MG/DL (30-150) Cholesterol Level 284 MG/DL (< 200) H LDL Cholesterol 208 mg/dL (<100) H HDL Cholesterol 57 MG/DL (40-60) Cholesterol/HDL Ratio 5.0 (3.3-4.4) H Thyroid Stimulating Hormone (TSH) 0.569 uiU/mL (0.358-3.740) Urine Color Yellow Urine Appearance Clear Urine pH 6 (4.5-8.0) Urine Specific [place] 1.020 (1.005-1.035) Urine Protein Negative (NEGATIVE) Urine Glucose (UA) Negative (NEGATIVE) Urine Ketones Negative (NEGATIVE) Urine Occult Blood 1+ (NEGATIVE) H Urine Nitrite Negative (NEGATIVE) Urine Bilirubin Negative (NEGATIVE) Urine Urobilinogen 1 MG/DL (0.0-1.0) H Urine Leukocyte Esterase Negative (NEGATIVE) Urine RBC Pending Urine WBC Pending Urine Squamous Epithelial Cells Pending Urine Bacteria Pending Microbiology Date/Time Source Procedure Growth Status 10/17/17 00:43 Nasal Nares Influenza Types A,B Antigen (BEATRIZ) - Final Complete Objective HEAD AND NECK: Showed no JVD. CHEST: He has a port in the right chest. LUNGS: Clear. CARDIOVASCULAR: Regular S1 and S2 with no gallop or murmur. ABDOMEN: Soft and nontender. EXTREMITIES: No pitting edema. BHANU CASTELLON Oct 18, 2017 16:06
[2017-10-18] MEDS: HYDROcodone/Acetamin 10/325 tab ORAL PRN (16:43)
[2017-10-18] MEDS: RILUTEK 50 MG ORAL SCH (18:00)
--- NOTE | 2017-10-18 19:54 | General Progress Note ---
Assessment/Plan Status: progressing Assessment/Plan asthma exac improving no mi cleared by cardiology patient and very eager to be dc today Subjective ROS Limited/Unobtainable: Yes Constitutional: Reports: no symptoms Allergies: Coded Allergies: No Known Allergies (Unverified , 10/17/17) Objective Last 24 Hour Vital Signs Date Time Temp Pulse Resp B/P (MAP) Pulse Ox O2 Delivery O2 Flow Rate FiO2 10/18/17 16:00 98 10/18/17 16:00 96.4 100 20 139/89 93 Room Air 96.4 10/18/17 12:00 80 10/18/17 12:00 97.9 82 18 118/66 94 Room Air 97.9 10/18/17 08:00 97.9 79 18 125/81 94 Room Air 97.9 10/18/17 08:00 80 10/18/17 07:11 78 18 Room Air 21 10/18/17 04:00 68 10/18/17 04:00 97.3 71 20 114/84 94 Room Air 97.3 10/18/17 00:15 78 10/18/17 00:00 98.2 83 20 116/74 94 Room Air 98.2 10/17/17 20:00 97.9 89 22 132/80 93 97.9 10/17/17 20:00 94 Intake and Output 10/17/17 10/18/17 19:00 07:00 Intake Total 236 ml 472 ml Output Total 400 ml Balance 236 ml 72 ml Intake Oral 236 ml 472 ml Output Urine Total 400 ml # Voids 1 2 Laboratory Tests 10/18/17 07:05: White Blood Count 10.3, Red Blood Count 5.46, Hemoglobin 16.1, Hematocrit 47.8, Mean Corpuscular Volume 88, Mean Corpuscular Hemoglobin 29.5, Mean Corpuscular Hemoglobin Concent 33.7, Red Cell Distribution Width 11.9, Platelet Count 291, Mean Platelet Volume 6.5, Neutrophils (%) (Auto) 83.7H, Lymphocytes (%) (Auto) 13.1L, Monocytes (%) (Auto) 2.9, Eosinophils (%) (Auto) 0.0, Basophils (%) (Auto ) 0.3, Sodium Level 138, Potassium Level 4.0, Chloride Level 104, Carbon Dioxide Level 25, Anion Gap 9, Blood Urea Nitrogen 16, Creatinine 0.5L, Estimat Glomerular Filtration Rate > 60, Glucose Level 138H, Calcium Level 9.3, Magnesium Level 2.1, Troponin I 0.000, Triglycerides Level 78, Cholesterol Level 284H, LDL Cholesterol 208H, HDL Cholesterol 57, Cholesterol/HDL Ratio 5.0H , Thyroid Stimulating Hormone (TSH) 0.569 10/18/17 14:57: Urine Color Yellow, Urine Appearance Clear, Urine pH 6, Urine Specific [place] 1.020, Urine Protein Negative, Urine Glucose (UA) Negative, Urine Ketones Negative, Urine Occult Blood 1+H, Urine Nitrite Negative, Urine Bilirubin Negative, Urine Urobilinogen 1H, Urine Leukocyte Esterase Negative, Urine RBC 2- 4H, Urine WBC 0-2, Urine Squamous Epithelial Cells None, Urine Bacteria None Height (Feet): 5 Height (Inches): 9.00 Weight (Pounds): 170 Cardiovascular: normal rate Respiratory/Chest: lungs clear Abdomen: soft Luisa Lindsay MD Oct 18, 2017 19:54
[2017-10-18 20:00] VITALS: BP 129/88
[2017-10-19] VITALS: BP 113/71
[2017-10-19] MEDS: Solu-MEDROL 40mg Inj IVP SCH ×2 (00:02→06:14)
[2017-10-19] MEDS: HYDROcodone/Acetamin 10/325 tab ORAL PRN (00:03)
[2017-10-19 04:00] VITALS: BP 104/78
[2017-10-19 08:00] VITALS: BP 124/74
[2017-10-19] MEDS ORDERED: Dyna-Hex 2% Top Sol 2oz TOPIC SCH (08:00)
[2017-10-19 08:07] LABS: BASOPHILS % (AUTO) 0.3 % (0.0-2.0); HEMATOCRIT 45.2 % (42.0-52.0); HEMOGLOBIN 15.3 G/DL (14.2-18.0); LYMPHOCYTES % (AUTO) 12.7 % (20.0-45.0); MEAN CORPUSCULAR VOLUME 87 FL (80-99); PLATELET COUNT 277 K/UL (150-450); RED BLOOD COUNT 5.17 M/UL (4.70-6.10); RED CELL DISTRIBUTION WIDTH 11.8 % (11.6-14.8); WHITE BLOOD COUNT 8.9 K/UL (4.8-10.8)
[2017-10-19 08:34] LABS: ALANINE AMINOTRANSFERASE 116 U/L (12-78); ALBUMIN 3.5 G/DL (3.4-5.0); ALBUMIN/GLOBULIN RATIO 0.9 (1.0-2.7); ALKALINE PHOSPHATASE 69 U/L (46-116); ANION GAP 9 mmol/L (5-15); ASPARTATE AMINO TRANSFERASE 53 U/L (15-37); BILIRUBIN,TOTAL 0.6 MG/DL (0.2-1.0); BLOOD UREA NITROGEN 23 mg/dL (7-18); CALCIUM 9.2 MG/DL (8.5-10.1); CARBON DIOXIDE 27 MMOL/L (21-32); CHLORIDE 105 MMOL/L (98-107); CREATININE 0.6 MG/DL (0.55-1.30); POTASSIUM 3.8 MMOL/L (3.5-5.1); SODIUM 140 MMOL/L (136-145)
[2017-10-19] MEDS: Docusate 100mg cap ORAL SCH (08:42)
[2017-10-19] MEDS: RILUTEK 50 MG ORAL SCH (08:42)
[2017-10-19] MEDS: Sertraline 50mg tab ORAL SCH (08:42)
[2017-10-19] MEDS: Heparin 5000 units/ml inj SUBQ SCH (08:44)
--- NOTE | 2017-10-19 08:51 | Cardiac Electrophysiology PN ---
Assessment/Plan Assessment/Plan 1. Dynamic EKG changes suggestive of inferolateral ischemia. Echocardiogram showed normal left ventricular systolic function. Dobutamine echo stress test however showed no ischemia. 2. Asthma, on albuterol and Solu-Medrol. 3. Acute depression, on Zoloft. 4. Amyotrophic lateral sclerosis. EMRLYN RN OK to DC from cardiac perspective. Subjective Subjective No chest pain or SOB. Had Dobutamine echo yesterday. No arrhythmias on tele. Objective Last 24 Hour Vital Signs Date Time Temp Pulse Resp B/P (MAP) Pulse Ox O2 Delivery O2 Flow Rate FiO2 10/19/17 06:55 72 18 Room Air 21 10/19/17 04:00 68 10/19/17 04:00 97.2 71 20 104/78 94 Room Air 97.2 10/19/17 00:00 97.3 76 20 113/71 95 Room Air 97.3 10/19/17 00:00 81 10/18/17 20:18 80 18 Room Air 21 10/18/17 20:00 97.3 82 20 129/88 95 Room Air 97.3 10/18/17 20:00 98 10/18/17 16:00 98 10/18/17 16:00 96.4 100 20 139/89 93 Room Air 96.4 10/18/17 12:00 80 10/18/17 12:00 97.9 82 18 118/66 94 Room Air 97.9 Intake and Output 10/18/17 10/19/17 19:00 07:00 Intake Total 830 ml 350 ml Output Total 400 ml 200 ml Balance 430 ml 150 ml Intake Oral 830 ml 350 ml Output Urine Total 400 ml 200 ml # Voids 3 Laboratory Tests Test 10/18/17 14:57 10/19/17 07:26 Urine Color Yellow Urine Appearance Clear Urine pH 6 (4.5-8.0) Urine Specific [place] 1.020 (1.005-1.035) Urine Protein Negative (NEGATIVE) Urine Glucose (UA) Negative (NEGATIVE) Urine Ketones Negative (NEGATIVE) Urine Occult Blood 1+ (NEGATIVE) H Urine Nitrite Negative (NEGATIVE) Urine Bilirubin Negative (NEGATIVE) Urine Urobilinogen 1 MG/DL (0.0-1.0) H Urine Leukocyte Esterase Negative (NEGATIVE) Urine RBC 2-4 /HPF (0 - 0) H Urine WBC 0-2 /HPF (0 - 0) Urine Squamous Epithelial Cells None /LPF (NONE/OCC) Urine Bacteria None /HPF (NONE) White Blood Count 8.9 K/UL (4.8-10.8) Red Blood Count 5.17 M/UL (4.70-6.10) Hemoglobin 15.3 G/DL (14.2-18.0) Hematocrit 45.2 % (42.0-52.0) Mean Corpuscular Volume 87 FL (80-99) Mean Corpuscular Hemoglobin 29.6 PG (27.0-31.0) Mean Corpuscular Hemoglobin Concent 33.9 G/DL (32.0-36.0) Red Cell Distribution Width 11.8 % (11.6-14.8) Platelet Count 277 K/UL (150-450) Mean Platelet Volume 6.5 FL (6.5-10.1) Neutrophils (%) (Auto) 82.0 % (45.0-75.0) H Lymphocytes (%) (Auto) 12.7 % (20.0-45.0) L Monocytes (%) (Auto) 5.0 % (1.0-10.0) Eosinophils (%) (Auto) 0.0 % (0.0-3.0) Basophils (%) (Auto) 0.3 % (0.0-2.0) Sodium Level 140 MMOL/L (136-145) Potassium Level 3.8 MMOL/L (3.5-5.1) Chloride Level 105 MMOL/L (98-107) Carbon Dioxide Level 27 MMOL/L (21-32) Anion Gap 9 mmol/L (5-15) Blood Urea Nitrogen 23 mg/dL (7-18) H Creatinine 0.6 MG/DL (0.55-1.30) Estimat Glomerular Filtration Rate > 60 mL/min (>60) Glucose Level 140 MG/DL (74-106) H Calcium Level 9.2 MG/DL (8.5-10.1) Total Bilirubin 0.6 MG/DL (0.2-1.0) Aspartate Amino Transf (AST/SGOT) 53 U/L (15-37) H Alanine Aminotransferase (ALT/SGPT) 116 U/L (12-78) H Alkaline Phosphatase 69 U/L (46-116) Pro-B-Type Natriuretic Peptide 24 pg/mL (0-125) Total Protein 7.5 G/DL (6.4-8.2) Albumin 3.5 G/DL (3.4-5.0) Globulin 4.0 g/dL Albumin/Globulin Ratio 0.9 (1.0-2.7) L Microbiology Date/Time Source Procedure Growth Status 10/17/17 00:43 Nasal Nares Influenza Types A,B Antigen (BEATRIZ) - Final Complete Objective HEAD AND NECK: Showed no JVD. CHEST: He has a port in the right chest. LUNGS: Clear. CARDIOVASCULAR: Regular S1 and S2 with no gallop or murmur. ABDOMEN: Soft and nontender. EXTREMITIES: No pitting edema. BHANU CASTELLON Oct 19, 2017 08:51
[2017-10-19] MEDS ORDERED: DOBUTamine 250mg/250ml Premix IV ONE (09:49)
--- NOTE | 2017-10-19 11:27 | Cardiology Report ---
APPROVED REPORT EKG Measurement Heart [id number] Normal sinus rhythm Possible Inferior infarct, age undetermined Abnormal ECG
--- NOTE | 2017-10-19 11:47 | Diagnostic Imaging Report ---
Indication: Dyspnea Comparison: 10/18/2017 A single view chest radiograph was obtained. Findings: Heart size is normal. Lungs are clear. Bones are osteopenic. There is right chest port present. IMPRESSION: No acute findings
--- NOTE | 2017-10-19 15:07 | Pulmonology Progress Note ---
Assessment/Plan Problems: (1) Asthma exacerbation (2) Respiratory distress (3) ALS (amyotrophic lateral sclerosis) Assessment/Plan respiratory treatment chest pt check sputum continue abx titrate fio2 to sat of 92% ok to dc home Subjective ROS Limited/Unobtainable: No Allergies: Coded Allergies: No Known Allergies (Unverified , 10/17/17) Objective Last 24 Hour Vital Signs Date Time Temp Pulse Resp B/P (MAP) Pulse Ox O2 Delivery O2 Flow Rate FiO2 10/19/17 08:00 97.5 74 20 124/74 96 Room Air 97.5 10/19/17 06:55 72 18 Room Air 21 10/19/17 04:00 68 10/19/17 04:00 97.2 71 20 104/78 94 Room Air 97.2 10/19/17 00:00 97.3 76 20 113/71 95 Room Air 97.3 10/19/17 00:00 81 10/18/17 20:18 80 18 Room Air 21 10/18/17 20:00 97.3 82 20 129/88 95 Room Air 97.3 10/18/17 20:00 98 10/18/17 16:00 98 10/18/17 16:00 96.4 100 20 139/89 93 Room Air 96.4 Intake and Output 10/18/17 10/19/17 19:00 07:00 Intake Total 830 ml 350 ml Output Total 400 ml 200 ml Balance 430 ml 150 ml Intake Oral 830 ml 350 ml Output Urine Total 400 ml 200 ml # Voids 3 Objective General Appearance: WD/WN, Lines, tubes and drains: peripheral HEENT: normocephalic, atraumatic Neck: non-tender, normal alignment, supple Respiratory/Chest: chest wall non-tender, lungs clear, normal breath sounds Breasts: no masses Cardiovascular/Chest: normal peripheral pulses, normal rate Abdomen: normal bowel sounds, non tender Genitourinary/Rectal: normal genital exam, normal rectal exam Extremities: normal range of motion, non-tender Skin Exam: normal pigmentation 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, Microbiology Date/Time Source Procedure Growth Status 10/17/17 00:43 Nasal Nares Influenza Types A,B Antigen (BEATRIZ) - Final Complete Laboratory Tests 10/19/17 07:26: White Blood Count 8.9, Red Blood Count 5.17, Hemoglobin 15.3, Hematocrit 45.2, Mean Corpuscular Volume 87, Mean Corpuscular Hemoglobin 29.6, Mean Corpuscular Hemoglobin Concent 33.9, Red Cell Distribution Width 11.8, Platelet Count 277, Mean Platelet Volume 6.5, Neutrophils (%) (Auto) 82.0H, Lymphocytes (%) (Auto) 12.7L, Monocytes (%) (Auto) 5.0, Eosinophils (%) (Auto) 0.0, Basophils (%) (Auto ) 0.3, Sodium Level 140, Potassium Level 3.8, Chloride Level 105, Carbon Dioxide Level 27, Anion Gap 9, Blood Urea Nitrogen 23H, Creatinine 0.6, Estimat Glomerular Filtration Rate > 60, Glucose Level 140H, Calcium Level 9.2, Total Bilirubin 0.6, Aspartate Amino Transf (AST/SGOT) 53H, Alanine Aminotransferase ( ALT/SGPT) 116H, Alkaline Phosphatase 69, Pro-B-Type Natriuretic Peptide 24, Total Protein 7.5, Albumin 3.5, Globulin 4.0, Albumin/Globulin Ratio 0.9L Current Medications Medications (Trade) Dose Ordered Sig/Zofia Route PRN Reason Start Time Stop Time Status Last Admin Dose Admin Acetaminophen (Tylenol) 650 mg Q4H PRN ORAL Mild Pain (Pain Scale 1-3) 10/17/17 09:15 11/16/17 09:14 Acetaminophen/ Hydrocodone Bitart ([place] 10/325) 1 tab Q4H PRN ORAL MOD-SEVERE PAIN 10/17/17 09:15 10/24/17 09:14 10/19/17 00:03 Al Hydroxide/Mg Hydroxide (Mylanta II) 30 ml Q6H PRN ORAL dyspepsia 10/17/17 09:15 11/16/17 09:14 Albuterol/ Ipratropium (Albuterol/ Ipratropium) 3 ml Q4HR PRN HHN Shortness of Breath 10/17/17 09:15 10/22/17 09:14 Baclofen (Lioresal) 20 mg THREE TIMES A DAY ORAL 10/17/17 13:00 11/16/17 12:59 10/19/17 08:42 Chlorhexidine Gluconate ([place]-Hex 2%) 1 applic DAILY@0800 TOPIC 10/19/17 08:00 11/18/17 07:59 10/19/17 08:40 Dextrose (Dextrose 50%) STAT PRN IV Hypoglycemia 10/17/17 09:15 11/16/17 09:14 Docusate Sodium (Colace) 100 mg TWICE A DAY ORAL 10/17/17 21:00 11/16/17 20:59 10/19/17 08:42 Famotidine (Pepcid) 40 mg DAILY ORAL 10/18/17 10:00 11/17/17 09:59 10/19/17 08:42 Heparin Sodium (Porcine) (Heparin 5000 units/ml) 5,000 units EVERY 12 HOURS SUBQ 10/17/17 21:00 11/16/17 20:59 10/19/17 08:44 Methylprednisolone Sodium Succinate (Solu-MEDROL) 40 mg EVERY 6 HOURS IVP 10/17/17 12:00 11/16/17 11:59 10/19/17 06:14 Ondansetron HCl (Zofran) 4 mg Q6H PRN IVP Nausea & Vomiting 10/17/17 09:15 11/16/17 09:14 Patient Own Medication (Patient's Own Med) 1 ea BID ORAL 10/18/17 18:00 11/17/17 17:59 10/19/17 08:42 Sertraline HCl (Zoloft) 50 mg BID ORAL 10/17/17 18:00 11/16/17 17:59 10/19/17 08:42 AVI LOPEZ Oct 19, 2017 15:07
--- NOTE | 2017-10-22 13:35 | Discharge Summary ---
Discharge Summary Hospital Course Date of Admission Oct 17, 2017 at 02:31 Date of Discharge Oct 19, 2017 at 09:50 Admitting Diagnosis Respiratory distress. IVANIA Brooks is a 52 year old male who was admitted on Oct 17, 2017 at 02:31 for Respiratory Distress Hospital Course dc summary #[id number] Discharge Medications Continued Medications: Baclofen* (Baclofen*) 10 Mg Tablet 20 MG ORAL THREE TIMES A DAY, TAB Hydrocodone Bit/Acetaminophen 10-325* (Hydrocodon-Acetaminophn 10-325*) 1 Each Tablet 1 TAB ORAL Q4H, #30 TAB 0 Refills Riluzole* (Riluzole*) 50 Mg Tablet 50 MG ORAL EVERY 12 HOURS, TAB Sertraline Hcl* (Zoloft*) 50 Mg Tablet 50 MG ORAL BID, TAB Discharge Condition Upon Discharge: stable Discharge Disposition Patient was discharged to Home (01) Discharge Diagnoses: Roel (Charly)Tasha NP Oct 22, 2017 13:35
--- NOTE | 2017-10-23 01:30 | Discharge Summary 2 SIG ---
DATE OF ADMISSION: 10/17/2017 DATE OF DISCHARGE: 10/19/2017 REASON FOR ADMISSION: 52-year-old male with history of asthma and amyotrophic lateral sclerosis presented with complaint of wheezing and shortness of breath. According to paramedics, the patient was hypoxic on the room air and was wheezing. He received breathing treatment by paramedics. Upon arrival in the emergency department, he was on the simple mask at 10 liters/minute. Blood pressure was elevated -150/100. The patient was tachycardic- 115, afebrile. Chest x-ray revealed no acute cardiopulmonary pathology. EKG showed ST depression with sinus tachycardia, initially 115.Troponin was negative. ProBNP was within normal limits. The patient under care for amyotrophic lateral sclerosis at [facility] and had Port-A-Cath for medication. For asthma, the patient was only using Ventolin inhaler at home, but not the maintenance inhaler. He denied chest pain. Denied palpitation. No hemoptysis. ADMITTING DIAGNOSIS: 1. Acute asthma exacerbation. 2. Acute hypoxemic respiratory failure. 3. Abnormal EKG with ST depression. 4. Amyotrophic lateral sclerosis. 5. Depression. HOSPITAL COURSE: The patient admitted to telemetry floor. Troponin was negative. Repeated troponin was negative. Second EKG was normal, no ST depression. Echocardiogram revealed preserved ejection fraction of 60% to 65%. Normal left ventricle wall motion. No evidence of pericardial effusion. Right ventricular systolic pressure of 27. Lipid panel revealed elevated cholesterol - 284. Elevated LDL-208 and stable triglycerides. Remnant Sorter seen and evaluated the patient. According to life skills trainer, the patient had dynamic EKG changes suggestive of inferolateral ischemia. His echocardiogram showed normal left ventricular systolic function. Dobutamine stress test showed no ischemia. For acute asthma exacerbation, the patient was on supplemental oxygen and pulmonary toilet. The patient was started on the IV steroids, which were gradually tapered. DVT and GI prophylaxis provided. Pain management addressed. Home medications were resumed. Supportive care provided. Neurology evaluation was requested. Per neurologist, the patient had amyotrophic lateral sclerosis with slow progression as well as depression. Respiratory insufficiency likely partially due to amyotrophic lateral sclerosis. He recommended PFT as an outpatient. Influenza screen was negative for influenza A or B and repeated chest x-ray revealed no acute findings. All consultants cleared the patient for discharge. The patient was stable for discharge home. Outpatient followup with the clinic at [facility] for amyotrophic lateral sclerosis. Outpatient followup with primary care provider. The patient and his were explained that he will need further Pulmonary workup as outpatient likely pulmonary function test. The patient was stable for discharge. FINAL DIAGNOSES: 1. Acute asthma exacerbation. 2. Acute hypoxemic respiratory failure, resolved. 3. Amyotrophic lateral sclerosis with slow progression 4. Abnormal EKG with ST depression, resolved. 5. Depression. DISCHARGE MEDICATIONS: See medication reconciliation list. DISCHARGE INSTRUCTIONS: The patient was discharged home. Followup as outlined above. Luisa Lindsay M.D. Tasha LewisHarlem Valley State Hospitalrory N.PJuice DR: Andrzej JOB#: [id number] CC: CURTIS
--- NOTE | 2017-10-23 10:54 | Diagnostic Imaging Report ---
APPROVED REPORT CPT Code: 72137 Present Symptoms Shortness of breath BILATERAL: Imaging reveals a patent deep venous system bilaterally. There is no evidence of thrombus within the femoral, popliteal or tibial segments. The greater saphenous veins are also within normal limits. Doppler indicates normal spontaneous flow within these segments.
== END 2017-10-19 09:50 | disposition home or self-care (01) | DRG 202 ==
LOC: EDBD → EMR 00:12 → EDBEDREQSVC 02:02 → 2E 02:31 → EDBEDREQ 03:26
DX: J45.901 Unspecified asthma with (acute) exacerbation (principal); J96.01 Acute respiratory failure with hypoxia; G12.21 Amyotrophic lateral sclerosis; F32.9 Major depressive disorder, single episode, unspecified; E87.6 Hypokalemia; R94.31 Abnormal electrocardiogram [ECG] [EKG]
CPT/HCPCS: 36415; 71045; 80048; 80053; 80061; 81003; 82550; 82553; 83735; 83880; 84443; 84484; 85025; 85379; 85610; 85730; 86710; 93005; 93017; 93306; 93350; 93970; 94640; 94664; 99285; J7620